=== PATIENT | female | born 1950 | race Caucasian/White ===

== ENCOUNTER 2018-05-11 09:04 | Day surgery (SDC) | payer OTHER ==
[~2018-05-11] VITALS: Ht 162.6 cm; Wt 91.8 kg
[~2018-05-11 09:04] MED LIST: ASPI325 PO; CELE200 PO; COLCRYS0.6 MG PO; DIALYVITE V5000 UNIT PO; FIBER GUMMIES1 EACH PO; GABA400 PO; OXYC5 PO; Omeprazole20 M1; PREDNISONE; PRILOSEC; Prinivil10 MG PO; QUININE; Stool Softener100 MG PO; TRAM50 PO; Zantac150 MG PO; [UNRECOGNIZED DRUG - OTHER]
[2018-05-11] MEDS ORDERED: TRAM50 (09:40)
== END 2018-05-11 10:59 | disposition home or self-care (01) ==
LOC: ORSCSDS 09:04
PROVIDERS: Internal Medicine Gastroenterology
PROC: 0DBL8ZX Excision of Transverse Colon, Via Natural or Artificial Opening Endoscopic, Diagnostic (ICD-10-PCS; principal; 2018-05-11 10:15)
DX: Z12.11 Encounter for screening for malignant neoplasm of colon (principal); D12.3 Benign neoplasm of transverse colon; K57.30 Diverticulosis of large intestine without perforation or abscess without bleeding; K64.8 Other hemorrhoids; I10 Essential (primary) hypertension; Z86.010 Personal history of colon polyps; Z80.0 Family history of malignant neoplasm of digestive organs; K21.9 Gastro-esophageal reflux disease without esophagitis; Z79.899 Other long term (current) drug therapy
CPT/HCPCS: 88305; J0330; J1980; J2405; J7120

== ENCOUNTER → 2019-07-12 | Outpatient (CLI) | payer OTHER ==
[~2019-07-12] MED LIST changes: +HYDROCODON-ACE1 EAC3 PO; +IBU600 MG PO; +TRAM50
[2019-07-12 08:29] LABS: Source, Urine Clean Catch
[2019-07-12 13:49] LABS: Bilirubin, Urine Neg (Neg); Blood, Urine 1+ (Neg); Glucose Qualitative, Urine Neg (Neg); Ketones, Urine Neg (Neg); Leukocyte Esterase, Urine Neg (Neg); Nitrite, Urine Neg (Neg); Protein, Urine Neg (Neg); Urobilinogen, Urine NORM (Normal)
[2019-07-12 14:02] LABS: Appearance, Urine Hazy (Clear); Color, Urine Yellow (P-Yellow)
[2019-07-12 14:04] LABS: Bacteria Rare /hpf; Red Blood Cells, Urine 0-2 /hpf (0-2); Squamous Epithelial Cells Mod /hpf (Few); White Blood Cells, Urine 0-2 /hpf (0-5)
== END | disposition home or self-care (01) ==
LOC: LAB SHORT 08:09 → LAB 08:09
PROVIDERS: Nurse Practitioner Family
DX: R35.0 Frequency of micturition (principal)
CPT/HCPCS: 81001

== ENCOUNTER 2019-07-19 10:52 | Emergency (ER) | payer OTHER ==
[~2019-07-19] VITALS: Ht 162.6 cm; Wt 93.0 kg
[~2019-07-19 10:52] MED LIST changes: -HYDROCODON-ACE1 EAC3 PO; -IBU600 MG PO
[2019-07-19 12:19] LABS: Source, Urine Clean Catch
[2019-07-19 12:36] LABS: Bilirubin, Urine Neg (Neg); Blood, Urine Neg (Neg); Glucose Qualitative, Urine Neg (Neg); Ketones, Urine Neg (Neg); Leukocyte Esterase, Urine Neg (Neg); Nitrite, Urine Neg (Neg); Protein, Urine Neg (Neg); Urobilinogen, Urine NORM (Normal)
[2019-07-19 12:40] LABS: Appearance, Urine Clear (Clear); Color, Urine Pale Yellow (P-Yellow)
[2019-07-19] MEDS ORDERED: IBU600 MG PO (13:33)
[2019-07-19] MEDS ORDERED: HYDROCODON-ACE1 EAC3 PO (13:33)
== END 2019-07-19 14:07 | disposition home or self-care (01) ==
LOC: ER 10:52
PROVIDERS: Emergency Medicine
DX: K80.20 Calculus of gallbladder without cholecystitis without obstruction (principal); N83.8 Other noninflammatory disorders of ovary, fallopian tube and broad ligament; Z88.0 Allergy status to penicillin; Z88.8 Allergy status to other drugs, medicaments and biological substances; Z88.5 Allergy status to narcotic agent; Z91.048 Other nonmedicinal substance allergy status; Z79.899 Other long term (current) drug therapy; Z79.891 Long term (current) use of opiate analgesic; K44.9 Diaphragmatic hernia without obstruction or gangrene
CPT/HCPCS: 74022; 74177; 80053; 81003; 83690; 85025; 99284-25; A9270-GY; Q9967

== ENCOUNTER 2019-09-26 08:44 | Day surgery (SDC) | payer OTHER ==
[~2019-09-26] VITALS: Ht 162.6 cm; Wt 87.0 kg
[~2019-09-26 08:44] MED LIST changes: +ALBU3IS INH; +ALBU90OI INH; +Alprazolam0.25 MG PO; +BUSP5 PO; +Baclofen10 MG PO; +CELE100 PO; +CLON.1 PO; +DOCU100 PO; +ELIQUIS5 MG PO; +ESCI20 PO; +ESTRADIOL PO; +FAMO20 PO; +HYDROCODON-ACE1 EAC3 PO; +IBU600 MG PO; +LOSA50 PO; +MELO7.5 PO; +METO25ER PO; +OMEPRAZOLE20 MG PO; +OXYB5 PO; +PROLIA60 MG/1 ML SC; +TRAZ100 PO; +VERA180ERB PO; +VITAMIN B122500 MCG PO; +Vitamin D2000 UNIT PO
--- NOTE | 2019-09-26 09:31 | NUR ---
PT ADMITTED TO [facility]. AGREES WITH PLANNED SURGERY. LUNG SOUNDS CLEAR.
--- NOTE | 2019-09-26 11:36 | NUR ---
INTO STEP VIA [facility]A. PT A&OX3. DENIES PAIN OR NAUSEA. 4X4 AND CLEAR OCCLUSIVE DRESSING INTACT TO RIGHT CHEST.
--- NOTE | 2019-09-26 12:11 | NUR ---
WRITTEN AND VERBAL D/C INSTUCTIONS GIVEN TO PT WITH STATED UNDERSTANDING.
== END 2019-09-26 12:28 | disposition home or self-care (01) ==
LOC: ORSCMMR 08:44
PROVIDERS: Surgery
PROC: B5131ZA Fluoroscopy of Right Jugular Veins using Low Osmolar Contrast, Guidance (ICD-10-PCS; principal; 2019-09-26 09:30)
PROC: 05HM33Z Insertion of Infusion Device into Right Internal Jugular Vein, Percutaneous Approach (ICD-10-PCS; principal; 2019-09-26 09:30)
DX: C56.1 Malignant neoplasm of right ovary (principal); I10 Essential (primary) hypertension; K21.9 Gastro-esophageal reflux disease without esophagitis; Z79.899 Other long term (current) drug therapy
CPT/HCPCS: 77001; A9270-GY; C1788; J0690; J1100; J1642; J1885; J2250; J2370; J2405; J2704; J2710; J3010; J7120

== ENCOUNTER 2020-04-01 00:14 | Day surgery (SDC) | payer OTHER | END 2020-04-01 11:30 | disposition home or self-care (01) | DX: C56.1 Malignant neoplasm of right ovary (principal); Z88.1 Allergy status to other antibiotic agents; Z88.5 Allergy status to narcotic agent; Z79.899 Other long term (current) drug therapy ==

== ENCOUNTER 2020-08-11 18:03 | Inpatient (IN) | payer OTHER ==
[~2020-08-11] VITALS: Ht 152.4 cm; Wt 91.3 kg
[2020-08-11 19:00] LABS: BASOPHILS ABSOLUTE AUTO 0.09 K/mm3 (0.00-0.23); BASOPHILS PERCENT AUTO 1 % (0-2); EOSINOPHILS PERCENT AUTO 1 % (0-6); Hematocrit 36.5 % (33.0-51.0); Hemoglobin 11.2 g/dL (11.5-16.0); IMMATURE GRAN ABSOLUTE AUTO 0.11 K/mm3 (0.00-0.10); IMMATURE GRAN PERCENT AUTO 1 % (0-1); LYMPHOCYTES ABSOLUTE AUTO 1.17 K/mm3 (0.84-5.20); LYMPHOCYTES PERCENT AUTO 8 % (21-46); MONOCYTES ABSOLUTE AUTO 1.42 K/mm3 (0.16-1.47); MONOCYTES PERCENT AUTO 10 % (4-13); Mean Corpuscular HGB 27.7 pg (26.0-34.0); Mean Corpuscular HGB Conc 30.7 g/dL (31.5-36.5); Mean Corpuscular Volume 90 fL (80-100); Mean Platelet Volume 9.9 fL (9.1-12.4); NEUTROPHILS ABSOLUTE AUTO 11.75 K/mm3 (1.96-9.15); NEUTROPHILS PERCENT AUTO 80 % (41-73); Platelet Count 229 K/mm3 (150-400); RDW Coefficient Variation 13.2 % (11.7-14.2); RDW Standard Deviation 43.7 fL (35.1-46.3); Red Blood Cell Count 4.04 M/mm3 (3.80-5.20); White Blood Cell Count 14.74 K/mm3 (4.00-11.30)
[2020-08-11 19:19] LABS: Albumin, Blood 3.1 g/dL (3.4-5.0); Albumin/Globulin Ratio 0.8 (0.8-1.8); Bilirubin, Total 0.5 mg/dL (0.1-1.0); Bun/Creatinine Ratio 25.7 (12.0-20.0); Calcium, Blood 11.5 mg/dL (8.5-10.1); Creatinine, Blood 1.44 mg/dL (0.40-1.00); Potassium, Blood 4.1 mmol/L (3.5-5.5); Total Protein, Blood 7.1 g/dL (6.4-8.2)
[2020-08-11] MEDS ORDERED: ONDA4 PO (19:54)
[2020-08-11] MEDS ORDERED: PROC5 PO (19:55)
[2020-08-11 21:35] LABS: Source, Urine Clean Catch
[2020-08-11 21:42] LABS: Bilirubin, Urine Neg (Neg); Blood, Urine 2+ (Neg); Glucose Qualitative, Urine Neg (Neg); Ketones, Urine Neg (Neg); Leukocyte Esterase, Urine Neg (Neg); Nitrite, Urine Neg (Neg); Protein, Urine 1+ (Neg); Specific Gravity, Urine 1.025 (1.003-1.022); Urobilinogen, Urine NORM (Normal)
[2020-08-11 21:43] LABS: Appearance, Urine Clear (Clear); Color, Urine Yellow (P-Yellow)
[2020-08-11 22:00] LABS: Bacteria Few /hpf; Mucus Light (0-Heavy); Red Blood Cells, Urine Not Seen /hpf (0-2); Squamous Epithelial Cells Mod /hpf (Few); White Blood Cells, Urine Rare /hpf (0-5)
[2020-08-12] MEDS ORDERED: GABA400 PO (02:29)
[2020-08-12 03:47] LABS: BASOPHILS ABSOLUTE AUTO 0.06 K/mm3 (0.00-0.23); BASOPHILS PERCENT AUTO 1 % (0-2); EOSINOPHILS ABSOLUTE AUTO 0.21 K/mm3 (0.00-0.68); EOSINOPHILS PERCENT AUTO 2 % (0-6); Hematocrit 31.2 % (33.0-51.0); Hemoglobin 9.5 g/dL (11.5-16.0); IMMATURE GRAN ABSOLUTE AUTO 0.07 K/mm3 (0.00-0.10); IMMATURE GRAN PERCENT AUTO 1 % (0-1); LYMPHOCYTES ABSOLUTE AUTO 1.42 K/mm3 (0.84-5.20); LYMPHOCYTES PERCENT AUTO 13 % (21-46); MONOCYTES ABSOLUTE AUTO 1.05 K/mm3 (0.16-1.47); MONOCYTES PERCENT AUTO 9 % (4-13); Mean Corpuscular HGB 27.5 pg (26.0-34.0); Mean Corpuscular HGB Conc 30.4 g/dL (31.5-36.5); Mean Corpuscular Volume 90 fL (80-100); NEUTROPHILS ABSOLUTE AUTO 8.58 K/mm3 (1.96-9.15); NEUTROPHILS PERCENT AUTO 75 % (41-73); Platelet Count 189 K/mm3 (150-400); RDW Coefficient Variation 13.2 % (11.7-14.2); RDW Standard Deviation 43.5 fL (35.1-46.3); Red Blood Cell Count 3.46 M/mm3 (3.80-5.20); White Blood Cell Count 11.39 K/mm3 (4.00-11.30)
[2020-08-12 04:09] LABS: Bun/Creatinine Ratio 25.4 (12.0-20.0); Calcium, Blood 10.1 mg/dL (8.5-10.1); Creatinine, Blood 1.3 mg/dL (0.40-1.00); Potassium, Blood 4.1 mmol/L (3.5-5.5)
--- NOTE | 2020-08-12 05:39 | NUR ---
SUMMARY PT COMPLAINS OF BLE PAIN UP TO HER HIPS AND GROIN AREA. PT STATES THAT SHE CAN NOT SLEEP AND IS HUNGRY. NO REPORTS OF NAUSEA THROUGHOUT THE NIGHT. SHE IS A SBA TO BEDSIDE COMMODE AND CAN REPOSITION INDEPENDENTLY IN BED, OCCASIONALLY ASKS FOR ASSISTANCE. SHE IS AWARE OF HER LIMITS AND ASKS FOR ASSISTANCE WHEN NEEDED. VSS, NO ACUTE CHANGES, CALL LIGHT IN REACH, BED IN LOW POSITION.
--- NOTE | 2020-08-12 07:30 | NUR ---
ASSUMED PATIENT CARE. PATIENT RESTING COMFORTABLY IN BED, CONVERSING WITH NURSING STAFF. NO SIGNS OF ACUTE DISTRESS, WCTM.
--- NOTE | 2020-08-12 09:38 | NUR ---
ASSUMED PATIENT CARE. PATIENT RESTING COMFORTABLY IN BED, NO SIGNS OF ACUTE DISTRESS, WCTM.
--- NOTE | 2020-08-12 19:32 | NUR ---
NO ACUTE EVENTS THIS SHIFT, HEPARIN THERAPY CONTINUED PER ORDERS. VSS, PATIENT DENIED CHEST PAIN/PRESSURE, SOB. PATIENT EDUCATED ON SIGNS OF PE AND TO CALL NURSING STAFF, PATIENT VERBALIZED UNDERSTANDING. DR. VIEIRA CONSULTED, PLAN IS FOR CLOT FILTER PLACEMENT TOMORROW. PATIENT ALERT AND ORIENTED, ON RA. NO SIGNS OF ACUTE DISTRESS.
[2020-08-13 02:10] LABS: BASOPHILS ABSOLUTE AUTO 0.06 K/mm3 (0.00-0.23); BASOPHILS PERCENT AUTO 1 % (0-2); EOSINOPHILS ABSOLUTE AUTO 0.23 K/mm3 (0.00-0.68); EOSINOPHILS PERCENT AUTO 2 % (0-6); Hematocrit 31.8 % (33.0-51.0); IMMATURE GRAN PERCENT AUTO 1 % (0-1); LYMPHOCYTES ABSOLUTE AUTO 1.66 K/mm3 (0.84-5.20); LYMPHOCYTES PERCENT AUTO 16 % (21-46); MONOCYTES ABSOLUTE AUTO 0.95 K/mm3 (0.16-1.47); MONOCYTES PERCENT AUTO 9 % (4-13); Mean Corpuscular HGB 27.9 pg (26.0-34.0); Mean Corpuscular HGB Conc 31.4 g/dL (31.5-36.5); Mean Corpuscular Volume 89 fL (80-100); Mean Platelet Volume 9.3 fL (9.1-12.4); NEUTROPHILS ABSOLUTE AUTO 7.39 K/mm3 (1.96-9.15); NEUTROPHILS PERCENT AUTO 71 % (41-73); Platelet Count 221 K/mm3 (150-400); RDW Coefficient Variation 13.1 % (11.7-14.2); RDW Standard Deviation 42.8 fL (35.1-46.3); Red Blood Cell Count 3.58 M/mm3 (3.80-5.20); White Blood Cell Count 10.39 K/mm3 (4.00-11.30)
[2020-08-13 02:25] LABS: Bun/Creatinine Ratio 18.5 (12.0-20.0); Calcium, Blood 10.3 mg/dL (8.5-10.1); Creatinine, Blood 1.08 mg/dL (0.40-1.00); Potassium, Blood 4.7 mmol/L (3.5-5.5)
--- NOTE | 2020-08-13 04:38 | NUR ---
SUMMARY PT IS SBA ASSIST TO BEDSIDE COMMODE. PT WOKE PERIODICALLY THROUGHOUT NIGHT DUE TO FEELING NAUSEATED, MEDICATED FOR NAUSEA, SEE eMAR. VSS, NO OTHER SIGNIFICANT CHANGES. CALL LIGHT IS IN REACH, BED IN LOW POSITION, WILL CONTINUE TO MONITOR.
--- NOTE | 2020-08-13 07:56 | NUR ---
ASSUMED PATIENT CARE. PATIENT SLEEPING COMFORTABLY IN BED, NO SIGNS OF ACUTE DISTRESS, WCTM.
--- NOTE | 2020-08-13 17:52 | NUR ---
REview of pt needs with physician. contacted doctor capri reina in [place] and requested last porgress notes and plan of care form office. Sent pt CT scan and notes and spoke with doctor jeronimo nurse with permission. Met with patient and her . Pt somewhat shocked after talking with doctor and reviewing scans. She had questions on prognosis and was still wanting to have great hope but also taking inventory of her life. She wanted to discuss advance cre planning. She was unsure about code status. Gently reviewed option of care that would allow treatment that she could adjust. Suggested we do advance directives to assign an alternate decision maker. At this time she wants her son states it would be to much for her . We discussed CPR and ventilator care. She questioned afectivness of CPR and we explored her belief systems and how [place] wanted to live her life. after discussion she is considering no CPR but will take some short tiem on a ventilator if needed. She states that if she was not neurologically intact [place] would not want chani life support. We discussed her will, POA and life needs. theraputic timw pt tearfull at end and theraputic touch and supportive prayer and facilitated her to get some anger and stress out. Will follow up with son.
--- NOTE | 2020-08-13 17:57 | NUR ---
PATIENT BEGAN TO COMPLAIN OF 10/10 PAIN IN THE AREA OF THE OUTER RIGHT KNEE AND R. LOWER CHEST. HEPARIN HAS BEEN CONTINUOUS THIS SHIFT, MANAGED PER PHARMACY. DR. MARTÍNEZ NOTIFIED, NO NEW ORDERS GIVEN. VSS EXCEPT SLIGHT INCREASE IN PATIENT'S RR. PATIENT STATUS COMMUNICATED TO HEART CENTER TEAM. PATIENT GIVEN IV FENTANYL FOR PAIN, TAKEN TO PLANNED TOP LIFTER PROCEDURE.
--- NOTE | 2020-08-13 18:37 | NUR ---
PATIENT WENT TO [facility] FOR IVC PLACEMENT. SEE PREVIOUS NOTE AT 1757 FOR INFO ON PATIENT STATUS IMMEDIATELY PRIOR TO [facility] PROCEDURE. THIS SHIFT PATIENT WORKED WITH OT, ABLE AMBULATE STANDBY ASSIST TO BEDSIDE COMMODE, WORKED WITH OT. PALLIATIVE CARE DISCUSSED ADVANCED CARE PLANNING AND CODE STATUS WITH PATIENT AND TODAY, RECEPTIVE CONVERSATION AND PALLIATIVE FOLLOWING. PATIENT ENDORSED THAT SHE WOULD LIKE TO DISCUSS PROGNOSIS AND PLANNING FOR CANCER TREATMENT, BUT IS ALSO WILLING TO DISCUSS CHANGE TO DNR CODE STATUS. PATIENT SPOUSE AND SON AT BEDSIDE THROUGHOUT SHIFT. PULMONARY ANGIOGRAM SHOWED NO SIGNS OF SADDLE EMBOLISM. PATIENT ALERT AND ORIENTED BACK IN ROOM, NO SIGNS OF ACUTE DISTRESS, WCTM.
--- NOTE | 2020-08-14 05:41 | NUR ---
PT RESTED SOME THROUGHOUT NIGHT AO ROOM AIR TELE NSR HEP GTT TITRATED TO 22U/KG/HR NAUSEA X3/EMESIS X1 VOIDING TO BSC 0 BM VSS CALL LIGHT WITHIN REACH, BED IN LOWEST POSITION. WILL CONTINUE TO MONITOR.
--- NOTE | 2020-08-14 07:19 | NUR ---
ASSUMED PATIENT CARE. PATIENT SLEEPING COMFORTABLY IN BED, NO SIGNS OF ACUTE DISTRESS, WCTM.
--- NOTE | 2020-08-14 17:31 | NUR ---
NO ACUTE EVENTS THIS SHIFT. PATIENT WENT TO TEACHER ADVISOR FOR THROMBECTOMY. UPON RETURN TO PCU, R PEDAL PULSE SIGNIFICANTLY IMPROVED AND STRONG. HEPARIN DRIP CONTINUED. PLAN IS FOR CONTINUED WORK WITH PT/OT POST CATH, PATIENT ABLE TO AMBULATE WELL WITH SBA TO BEDSIDE COMMODE AT THIS POINT. PATIENT HAS HAD INTERMITTENT NAUSEA TODAY, NO VOMITING THIS SHIFT. REGULAR DIET ORDERED BY DR. MARTÍNEZ, WILL SUPPORT NUTRITIONAL INTAKE THE PATIENT IS ABLE TO TOLERATE, MEDICATING WITH ANTIEMETICS PER EMAR. PATIENT DENIED CHEST PAIN/SOB THIS SHIFT.
--- NOTE | 2020-08-15 05:42 | NUR ---
PT RESTED THROUGH NIGHT AO - ANXIOUS RA TELE NSR 1 SM BM VOIDING TO BSC R POPLITEAL SITE/R JUGULAR SITE C/D/I - NO SIGNS OF BLEEDING PAIN X4 NAUSEA X1 VSS HEP GTT 24U/KG/HR @31.2ML/HR - LATEST PTT 80.5 CALL LIGHT WITHIN REACH, BED IN LOWEST POSITION. WILL CONTINUE TO MONITOR.
[2020-08-15 11:12] LABS: Mean Platelet Volume 9.8 fL (9.1-12.4); Platelet Count 315 K/mm3 (150-400)
--- NOTE | 2020-08-15 13:17 | NUR ---
Pt resting states she is having some increased pain in her back, states sleep has been difficult and she is anxious about a plan. review of her husbands needs and medical fraily he is starting to need a caregiver. We talked about their son moving in and helpin or seeing if can [facility]. It aston be time for them to leave their home. Reviw with hemodialysis patient care specialist. both pt and her get care at [facility] will reach out with pt husbands and pt permission for support for them both.
--- NOTE | 2020-08-15 17:11 | NUR ---
SHIFT SUMMARY PT ALERT AND ORIENTED. VS STABLE. O2 SATS HAVE REMAINED ABOVE 90% ON RA. BP STABLE. PT COMPLAINS OF PAIN IN HER BACK AND SHOULDERS THAT IS CHRONIC. PT REPOSITIONED NEEDED AND MEDICATED PER EMAR. PT AMBULATED IN THE BARBOUR AND UP TO BATHROOM THROUGHOUT SHIFT. HR NSR. PT BRIDGED FROM HEP GTT TO XARELTO THIS SHIFT. STATUS CHANGED TO MEDICAL THIS SHIFT. WILL CONTINUE TO MONITOR AND REPORT TO ONCOMING RN. CALL LIGHT IN REACH.
[2020-08-16 05:36] LABS: BASOPHILS ABSOLUTE AUTO 0.05 K/mm3 (0.00-0.23); BASOPHILS PERCENT AUTO 1 % (0-2); EOSINOPHILS ABSOLUTE AUTO 0.17 K/mm3 (0.00-0.68); EOSINOPHILS PERCENT AUTO 2 % (0-6); IMMATURE GRAN ABSOLUTE AUTO 0.14 K/mm3 (0.00-0.10); IMMATURE GRAN PERCENT AUTO 2 % (0-1); LYMPHOCYTES PERCENT AUTO 10 % (21-46); MONOCYTES ABSOLUTE AUTO 1.01 K/mm3 (0.16-1.47); MONOCYTES PERCENT AUTO 12 % (4-13); Mean Corpuscular HGB 27.4 pg (26.0-34.0); Mean Corpuscular Volume 92 fL (80-100); Mean Platelet Volume 9.3 fL (9.1-12.4); NEUTROPHILS ABSOLUTE AUTO 6.45 K/mm3 (1.96-9.15); NEUTROPHILS PERCENT AUTO 74 % (41-73); Platelet Count 290 K/mm3 (150-400); RDW Coefficient Variation 13.3 % (11.7-14.2); RDW Standard Deviation 45.1 fL (35.1-46.3); Red Blood Cell Count 3.28 M/mm3 (3.80-5.20); White Blood Cell Count 8.72 K/mm3 (4.00-11.30)
[2020-08-16 05:52] LABS: Albumin, Blood 2.3 g/dL (3.4-5.0); Anion Gap 5 mmol/L (6-16); Blood Urea Nitrogen 37 mg/dL (8-24); Bun/Creatinine Ratio 24.2 (12.0-20.0); CO2, Blood 24 mmol/L (21-32); Calcium, Blood 10.6 mg/dL (8.5-10.1); Chloride, Blood 102 mmol/L (98-108); Creatinine, Blood 1.53 mg/dL (0.40-1.00); Glomerular Filtration Rate 36 (60-); Glucose, Blood 104 mg/dL (70-99); Magnesium, Blood 1.9 mg/dL (1.6-2.4); Phosphorus, Blood 3.2 mg/dL (2.5-4.9); Potassium, Blood 4.3 mmol/L (3.5-5.5); Sodium, Blood 131 mmol/L (136-145)
--- NOTE | 2020-08-16 07:50 | NUR ---
SHIFT SUMMARY PATIENT PLEASENT AND COOPERATIVE THROUGHOUT THE NIGHT. PATIENT APPAERED TO NAP ON AND OFF LAST NIGHT. PATIENT MEDICATED FOR PAIN PER EMAR. PATIENT DID EXPERIENCE SOME NAUSEA AND ONE EPISODE OF VOMITING LAST NIGHT. PATIENT REPORTS SHE THINK'S, "IT WAS THE ZUCCHINI I ATE LAST NIGHT." AFTER MEDICATION PROVIDED FOR NAUSEA, PATIENT ABLE TO FALL BACK TO SLEEP. VITAL SIGNS CHARTED. REPORT GIVEN TO ONCOMING RN.
--- NOTE | 2020-08-16 19:31 | NUR ---
SHIFT SUMMARY: NO ACUTE EVENTS THIS SHIFT. NO EVENTS ON TELEMTRY. C/O PAIN IN R HIP, NECK, R SHOULDER, AND BACK; MEDICATED PER EMAR WITH ADEQUATE RELIEF. DRESSINGS ON R POPLITEAL AND R CHEST ARE CD&I, NO BLEEDING NOTED. POOR APPETITE, MEDICATED FOR N/V X 1. AMBULATING TO BR WITH FWW AND SBA, IS DOING PHYSICAL THERAPY EXERCISES SHE IS ABLE. C/O POOR SLEEP LAST NIGHT, NAPPED APRT OF THE DAY.
--- NOTE | 2020-08-17 03:38 | NUR ---
SHIFT SUMMARY PATIENT HAD NO ACUTE CHANGES OBSERVED. AXOX 3 AND ONE ASSIST W/FWW TO BR. REPORTED R HIP, NECK AND R SHOULDER PAIN. IV FENTANYL 25 MCG GIVEN PER EMAR. REPORTED NAUSEOUS FOUR HRS AFTER MEDICATION ADMINISTRATION AND IV ZOFRAN GIVEN AND RESOLVED. PATIENT REPORTS HX OF N/V AFTER EVENING MEDS. VSS/AFEBRILE. PIV REMAINS INTACT. NS INFUSING AT 100 mL/HR. DIRECTOR OF ROTC REPORTS ST 105. CALL LIGHT IN REACH. BED IN LOWEST POSITION. WILL CONTINUE TO MONITOR UNTIL DAY SHIFT NURSE ASSUMES CARE.
[2020-08-17 05:14] LABS: BASOPHILS ABSOLUTE AUTO 0.04 K/mm3 (0.00-0.23); BASOPHILS PERCENT AUTO 0 % (0-2); EOSINOPHILS ABSOLUTE AUTO 0.09 K/mm3 (0.00-0.68); EOSINOPHILS PERCENT AUTO 1 % (0-6); Hemoglobin 8.4 g/dL (11.5-16.0); IMMATURE GRAN ABSOLUTE AUTO 0.15 K/mm3 (0.00-0.10); IMMATURE GRAN PERCENT AUTO 2 % (0-1); LYMPHOCYTES ABSOLUTE AUTO 0.95 K/mm3 (0.84-5.20); LYMPHOCYTES PERCENT AUTO 11 % (21-46); MONOCYTES ABSOLUTE AUTO 0.98 K/mm3 (0.16-1.47); MONOCYTES PERCENT AUTO 11 % (4-13); Mean Corpuscular HGB 28.1 pg (26.0-34.0); Mean Corpuscular HGB Conc 31.1 g/dL (31.5-36.5); Mean Corpuscular Volume 90 fL (80-100); Mean Platelet Volume 9.6 fL (9.1-12.4); NEUTROPHILS ABSOLUTE AUTO 6.81 K/mm3 (1.96-9.15); NEUTROPHILS PERCENT AUTO 76 % (41-73); Platelet Count 287 K/mm3 (150-400); RDW Coefficient Variation 13.5 % (11.7-14.2); RDW Standard Deviation 44.3 fL (35.1-46.3); Red Blood Cell Count 2.99 M/mm3 (3.80-5.20); White Blood Cell Count 9.02 K/mm3 (4.00-11.30)
[2020-08-17 05:37] LABS: Albumin, Blood 2.3 g/dL (3.4-5.0); Anion Gap 5 mmol/L (6-16); Blood Urea Nitrogen 28 mg/dL (8-24); Bun/Creatinine Ratio 25.7 (12.0-20.0); CO2, Blood 25 mmol/L (21-32); Calcium, Blood 10.2 mg/dL (8.5-10.1); Chloride, Blood 106 mmol/L (98-108); Creatinine, Blood 1.09 mg/dL (0.40-1.00); Glomerular Filtration Rate 53 (60-); Glucose, Blood 98 mg/dL (70-99); Magnesium, Blood 1.8 mg/dL (1.6-2.4); Phosphorus, Blood 2.5 mg/dL (2.5-4.9); Potassium, Blood 4.8 mmol/L (3.5-5.5); Sodium, Blood 136 mmol/L (136-145)
[2020-08-17] MEDS ORDERED: ACET325 PO (10:08)
[2020-08-17] MEDS ORDERED: XARELTO20 MG PO (10:09)
[2020-08-17] MEDS ORDERED: PROM25 PO (10:09)
--- NOTE | 2020-08-17 13:42 | NUR ---
PATIENT DISCHARGED TO HOME IN THE CARE OF HER NEIGHBOR. WAS GIVEN MARNIE PAPERWORK IN ORDER TO PICK 2 DOSES OF XARELTO HER PHARMACY IS CLOSED TODAY. IV SALINE LOCK REMOVED WITHOUT INCIDENT. PATIENT HAS ALL BELONGINGS. TAKEN DOWNSTAIRS VIA W/C AT 1335.
== END 2020-08-17 13:27 | disposition home health service (06) | DRG 270 ==
LOC: ER 18:03 → PCU 23:50 → MEDS 08-15 17:51
PROVIDERS: Internal Medicine; Internal Medicine Gastroenterology; Pharmacist; Physician Assistant; ADMIT Family Medicine
PROC: 06H03DZ Insertion of Intraluminal Device into Inferior Vena Cava, Percutaneous Approach (ICD-10-PCS; principal; 2020-08-13)
PROC: 04CK3ZZ Extirpation of Matter from Right Femoral Artery, Percutaneous Approach (ICD-10-PCS; 2020-08-14)
PROC: 047K3ZZ Dilation of Right Femoral Artery, Percutaneous Approach (ICD-10-PCS; 2020-08-14)
PROC: B5191ZZ Fluoroscopy of Inferior Vena Cava using Low Osmolar Contrast (ICD-10-PCS; 2020-08-14)
PROC: B51F1ZZ Fluoroscopy of Right Pelvic (Iliac) Veins using Low Osmolar Contrast (ICD-10-PCS; 2020-08-14)
PROC: B51B1ZZ Fluoroscopy of Right Lower Extremity Veins using Low Osmolar Contrast (ICD-10-PCS; 2020-08-14)
DX: I82.413 Acute embolism and thrombosis of femoral vein, bilateral (principal); I26.99 Other pulmonary embolism without acute cor pulmonale; C56.9 Malignant neoplasm of unspecified ovary; C78.7 Secondary malignant neoplasm of liver and intrahepatic bile duct; N17.9 Acute kidney failure, unspecified; R65.10 Systemic inflammatory response syndrome (SIRS) of non-infectious origin without acute organ dysfunction; I82.433 Acute embolism and thrombosis of popliteal vein, bilateral; I82.443 Acute embolism and thrombosis of tibial vein, bilateral; I82.453 Acute embolism and thrombosis of peroneal vein, bilateral; E83.52 Hypercalcemia; K21.9 Gastro-esophageal reflux disease without esophagitis; E86.0 Dehydration
CPT/HCPCS: 36005; 36010; 36415; 37187; 37191; 37248; 71260; 74176; 74177; 75820; 76937; 80048; 80053; 80069; 81001; 83605; 83690; 83735; 85025; 85049; 85730; 86304; 87040; 93005; 93010; 93970; 96361; 96374; 97110; 97116; 97161; 97165; 97530; 97535; 99152; 99153; 99285-25; A9270; C1725; C1757; C1769; C1880; C1887; C1894; C9113; J0780; J1644; J2250; J2405; J2550; J3010; J7030; J7040; Q9967

== ENCOUNTER → 2020-09-03 | Outpatient (CLI) | payer OTHER ==
[~2020-09-03] MED LIST changes: +ACET325 PO; +FENTANYL1 EA10 TOP; +FENTANYL1 EA14 TOP; +HYDR1TAB94 PO; +LORA1 PO; +MIRALAX17 GM PO; +MORP20L PO; +OLAN5 PO; +ONDA4 PO; +Ondansetron Odt8 MG MM; +PROC5 PO; +PROM25 PO; +TRANSDERM-SCOP1 EAC2 TOP; +XARELTO20 MG PO
[2020-09-03 16:54] LABS: BASOPHILS ABSOLUTE AUTO 0.04 K/mm3 (0.00-0.23); BASOPHILS PERCENT AUTO 1 % (0-2); EOSINOPHILS ABSOLUTE AUTO 0.08 K/mm3 (0.00-0.68); EOSINOPHILS PERCENT AUTO 1 % (0-6); Hematocrit 29.6 % (33.0-51.0); Hemoglobin 8.7 g/dL (11.5-16.0); IMMATURE GRAN ABSOLUTE AUTO 0.05 K/mm3 (0.00-0.10); IMMATURE GRAN PERCENT AUTO 1 % (0-1); LYMPHOCYTES ABSOLUTE AUTO 0.82 K/mm3 (0.84-5.20); LYMPHOCYTES PERCENT AUTO 10 % (21-46); MONOCYTES ABSOLUTE AUTO 0.81 K/mm3 (0.16-1.47); MONOCYTES PERCENT AUTO 10 % (4-13); Mean Corpuscular HGB 26.4 pg (26.0-34.0); Mean Corpuscular HGB Conc 29.4 g/dL (31.5-36.5); Mean Corpuscular Volume 90 fL (80-100); Mean Platelet Volume 9.9 fL (9.1-12.4); NEUTROPHILS ABSOLUTE AUTO 6.48 K/mm3 (1.96-9.15); NEUTROPHILS PERCENT AUTO 78 % (41-73); Platelet Count 332 K/mm3 (150-400); RDW Coefficient Variation 14.1 % (11.7-14.2); RDW Standard Deviation 46.6 fL (35.1-46.3); White Blood Cell Count 8.28 K/mm3 (4.00-11.30)
[2020-09-03 17:06] LABS: Albumin, Blood 2.6 g/dL (3.4-5.0); Albumin/Globulin Ratio 0.7 (0.8-1.8); Bilirubin, Total 0.3 mg/dL (0.1-1.0); Bun/Creatinine Ratio 18.5 (12.0-20.0); Calcium, Blood 12.1 mg/dL (8.5-10.1); Creatinine, Blood 1.51 mg/dL (0.40-1.00); Globulin, Blood 3.8 g/dL (2.2-4.0); Potassium, Blood 5.1 mmol/L (3.5-5.5); Total Protein, Blood 6.4 g/dL (6.4-8.2)
[2020-09-03 17:12] LABS: International Normalized Ratio 1.05; Prothrombin Time Results 11.2 Sec (9.7-11.5)
== END ==
LOC: LAB SHORT 14:56 → LAB 14:56
PROVIDERS: Registered Nurse Oncology
DX: C56.9 Malignant neoplasm of unspecified ovary (principal); C78.7 Secondary malignant neoplasm of liver and intrahepatic bile duct; R18.8 Other ascites; R11.2 Nausea with vomiting, unspecified
CPT/HCPCS: 80053; 85025; 85610; 85730

== ENCOUNTER 2020-09-05 09:19 | Observation (INO) | payer OTHER ==
[~2020-09-05] VITALS: Ht 160 cm; Wt 93.2 kg
[~2020-09-05 09:19] MED LIST changes: -FENTANYL1 EA10 TOP; -FENTANYL1 EA14 TOP; -HYDR1TAB94 PO; -LORA1 PO; -MIRALAX17 GM PO; -MORP20L PO; -OLAN5 PO; -Ondansetron Odt8 MG MM; -TRANSDERM-SCOP1 EAC2 TOP
[2020-09-05 10:17] LABS: BASOPHILS ABSOLUTE AUTO 0.03 K/mm3 (0.00-0.23); BASOPHILS PERCENT AUTO 0 % (0-2); EOSINOPHILS ABSOLUTE AUTO 0.01 K/mm3 (0.00-0.68); EOSINOPHILS PERCENT AUTO 0 % (0-6); Hematocrit 30.5 % (33.0-51.0); Hemoglobin 9.2 g/dL (11.5-16.0); IMMATURE GRAN ABSOLUTE AUTO 0.06 K/mm3 (0.00-0.10); IMMATURE GRAN PERCENT AUTO 1 % (0-1); LYMPHOCYTES PERCENT AUTO 9 % (21-46); MONOCYTES ABSOLUTE AUTO 0.94 K/mm3 (0.16-1.47); MONOCYTES PERCENT AUTO 10 % (4-13); Mean Corpuscular HGB 26.4 pg (26.0-34.0); Mean Corpuscular HGB Conc 30.2 g/dL (31.5-36.5); Mean Corpuscular Volume 88 fL (80-100); Mean Platelet Volume 9.3 fL (9.1-12.4); NEUTROPHILS ABSOLUTE AUTO 7.78 K/mm3 (1.96-9.15); NEUTROPHILS PERCENT AUTO 80 % (41-73); Platelet Count 299 K/mm3 (150-400); RDW Coefficient Variation 14.1 % (11.7-14.2); RDW Standard Deviation 45.1 fL (35.1-46.3); Red Blood Cell Count 3.48 M/mm3 (3.80-5.20); White Blood Cell Count 9.72 K/mm3 (4.00-11.30)
[2020-09-05 10:33] LABS: International Normalized Ratio 1.13
[2020-09-05 10:34] LABS: Albumin, Blood 2.6 g/dL (3.4-5.0); Albumin/Globulin Ratio 0.7 (0.8-1.8); Bilirubin, Total 0.4 mg/dL (0.1-1.0); Bun/Creatinine Ratio 20.2 (12.0-20.0); Calcium, Blood 11.5 mg/dL (8.5-10.1); Creatinine, Blood 1.24 mg/dL (0.40-1.00); Globulin, Blood 3.8 g/dL (2.2-4.0); Potassium, Blood 4.7 mmol/L (3.5-5.5); Total Protein, Blood 6.4 g/dL (6.4-8.2)
[2020-09-05] MEDS ORDERED: PROM25 PO (12:53)
[2020-09-05] MEDS ORDERED: PROC5 PO (12:53)
[2020-09-05] MEDS ORDERED: Ondansetron Odt8 MG MM (12:53)
[2020-09-05] MEDS ORDERED: FENTANYL1 EA10 TOP (17:55)
[2020-09-05] MEDS ORDERED: FENTANYL1 EA14 TOP (17:56)
--- NOTE | 2020-09-05 18:30 | NUR ---
PT ARRIVED TO ROOM 337 FROM ER VIA GURNEY. LIFTING/TRANSFER ASSISTANCE REQUIRED. ORIENTED TO ROOM AND CALL SYSTEM. BED IN LOWEST POSITION AND CALL REARDON IN REACH. PT REQUESTED TO USE RESTROOM, WAS ABLE TO STAND AND TRANSFER TO BSC WITH 1 ASSIST AND WALKER. WILL CONTINUE TO MONITOR
[2020-09-06 05:27] LABS: BASOPHILS ABSOLUTE AUTO 0.05 K/mm3 (0.00-0.23); BASOPHILS PERCENT AUTO 0 % (0-2); EOSINOPHILS ABSOLUTE AUTO 0.01 K/mm3 (0.00-0.68); EOSINOPHILS PERCENT AUTO 0 % (0-6); Hematocrit 28.9 % (33.0-51.0); Hemoglobin 8.8 g/dL (11.5-16.0); IMMATURE GRAN ABSOLUTE AUTO 0.06 K/mm3 (0.00-0.10); IMMATURE GRAN PERCENT AUTO 1 % (0-1); LYMPHOCYTES ABSOLUTE AUTO 1.26 K/mm3 (0.84-5.20); LYMPHOCYTES PERCENT AUTO 10 % (21-46); MONOCYTES PERCENT AUTO 10 % (4-13); Mean Corpuscular HGB 26.8 pg (26.0-34.0); Mean Corpuscular HGB Conc 30.4 g/dL (31.5-36.5); Mean Corpuscular Volume 88 fL (80-100); Mean Platelet Volume 9.3 fL (9.1-12.4); NEUTROPHILS ABSOLUTE AUTO 9.63 K/mm3 (1.96-9.15); NEUTROPHILS PERCENT AUTO 79 % (41-73); Platelet Count 279 K/mm3 (150-400); RDW Coefficient Variation 14.1 % (11.7-14.2); RDW Standard Deviation 45.5 fL (35.1-46.3); Red Blood Cell Count 3.28 M/mm3 (3.80-5.20); White Blood Cell Count 12.21 K/mm3 (4.00-11.30)
[2020-09-06 06:00] LABS: Albumin, Blood 2.5 g/dL (3.4-5.0); Albumin/Globulin Ratio 0.7 (0.8-1.8); Bilirubin, Total 0.4 mg/dL (0.1-1.0); Bun/Creatinine Ratio 23.4 (12.0-20.0); Calcium, Blood 11.7 mg/dL (8.5-10.1); Creatinine, Blood 1.24 mg/dL (0.40-1.00); Globulin, Blood 3.7 g/dL (2.2-4.0); Potassium, Blood 4.6 mmol/L (3.5-5.5); Total Protein, Blood 6.2 g/dL (6.4-8.2)
--- NOTE | 2020-09-06 06:47 | NUR ---
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 SHE IS A&O X 4, VERY ANXIOUS. SHE IS A 1PA TO THE BEDSIDE COMMODE, AND IS UP FREQUENTLY TO TRY TO URINATE. BELLY IS FIRM AND VERY DISTENDED, BUT PT DENIES PAIN. SHE DOES REPORT NAUSEA, BUT WAS ABLE TO TAKE PO MEDS. SHE ALSO REPORTED HEARTBURN THIS AM, AND WAS GIVEN HER FIRST DOSE OF PRILOSEC EARLY PER HER REQUEST. NO C/O SOB. VITAL SIGNS STABLE. PT IS ON A HEPARIN DRIP, WHICH WAS INCREASED TO 15 U/KG OR 21.3 ML/HR. NO OTHER ACUTE CHANGES IN PT CONDITION NOTED DURING THE NIGHT. WILL CONTINUE TO MONITOR AND TREAT PER EMAR UNTIL HAND OFF TO DAY SHIFT RN.
--- NOTE | 2020-09-06 16:16 | NUR ---
SHIFT SUMMARY NO ACUTE CHANGES T/O SHIFT, A&Ox4. ABD IS STILL FIRM AND DISTENDED, WELL SOME DISCOMFORT. PT IS NOW RECIEVING 0.5 MG OF DILAUDID Q1H PRN. PARACENTESIS IS STILL EXPECTED TO OCCUR TUESDAY. HEPARIN IS STILL RUNNING AND WAS ADJUSTED ONCE TODAY. PT COMPLAINS OF HER BUTTOM HURTING, WE RECOMMENDED WE HAVE THE PT REPOSITION OFTEN FROM SIDE TO SIDE AND ALLOW US TO FLOAT HER BOTTOM WITH PILLOWS. PT STATES IT IS NOT COMFORTABLE TO DO THOSE THINGS AND CAN'T STAY IN THAT POSITION LONG. NO REDNESS IS NOTED OR PRESSURE ULCERS DEVELOPING AT THIS TIME. WILL CONTINUE TO ENCOURAGE PT TO REPOSITION OFTEN. PT ALSO EXPERIENCED SOME NAUSEA AND WAS TREATED PER EMAR AND PT REQUEST.
--- NOTE | 2020-09-07 04:27 | NUR ---
SHIFT SUMMARY ASSUMED CARE OF PT AT 1900. PT IS A/OX4. HEART SOUNDS REGULAR, LUNG SOUNDS CLEAR. ABD HARD AND DISTENDED. PT VOMITED MEDICATION THE FIRST TIME GIVEN, MEDICATION ZOFRAN GIVEN TO STOP NEASEA, PT THEN ATTEMPTED AGAIN TO TAKE NIGHTLY MEDS BUT COULD NOT TAKE LACTALOSE DUE TO THE FACT THAT SHE THINKS IT IS WHAT MADE HER VOMIT IN THE FIRST PLACE BECUASE OF HOW SWEET IT WAS. PT IS 1P SBA TO COMMODE. PT URINE IS CLEAR AND YELLOW. PT C/O NEASEA AND PAIN IN THE AM, MEDCATED PER EMAR AND WAS ABLE TO SLEEP THE REST OF THE MORNING. CALL LIGHT IN REACH, BED IN LOWEST POSTION.
[2020-09-07 06:07] LABS: BASOPHILS ABSOLUTE AUTO 0.03 K/mm3 (0.00-0.23); BASOPHILS PERCENT AUTO 0 % (0-2); EOSINOPHILS ABSOLUTE AUTO 0.02 K/mm3 (0.00-0.68); EOSINOPHILS PERCENT AUTO 0 % (0-6); Hematocrit 27.1 % (33.0-51.0); Hemoglobin 8.2 g/dL (11.5-16.0); IMMATURE GRAN ABSOLUTE AUTO 0.08 K/mm3 (0.00-0.10); IMMATURE GRAN PERCENT AUTO 1 % (0-1); LYMPHOCYTES ABSOLUTE AUTO 1.38 K/mm3 (0.84-5.20); LYMPHOCYTES PERCENT AUTO 13 % (21-46); MONOCYTES PERCENT AUTO 9 % (4-13); Mean Corpuscular HGB 26.7 pg (26.0-34.0); Mean Corpuscular HGB Conc 30.3 g/dL (31.5-36.5); Mean Corpuscular Volume 88 fL (80-100); Mean Platelet Volume 9.4 fL (9.1-12.4); NEUTROPHILS ABSOLUTE AUTO 8.24 K/mm3 (1.96-9.15); NEUTROPHILS PERCENT AUTO 77 % (41-73); Platelet Count 299 K/mm3 (150-400); RDW Coefficient Variation 14.3 % (11.7-14.2); RDW Standard Deviation 46.1 fL (35.1-46.3); Red Blood Cell Count 3.07 M/mm3 (3.80-5.20); White Blood Cell Count 10.75 K/mm3 (4.00-11.30)
[2020-09-07 06:24] LABS: Albumin, Blood 2.3 g/dL (3.4-5.0); Albumin/Globulin Ratio 0.7 (0.8-1.8); Bilirubin, Total 0.5 mg/dL (0.1-1.0); Bun/Creatinine Ratio 19.2 (12.0-20.0); Creatinine, Blood 1.82 mg/dL (0.40-1.00); Globulin, Blood 3.4 g/dL (2.2-4.0); Potassium, Blood 4.5 mmol/L (3.5-5.5); Total Protein, Blood 5.7 g/dL (6.4-8.2)
--- NOTE | 2020-09-07 17:43 | NUR ---
SHIFT SUMMARY NO ACUTE CHANGES T/O SHIFT, PT A&Ox4. STILL EXPERIENCING PAIN AND NAUSEA, PT WAS TREATED PER PT REQUEST AND EMAR. STILL NO BM SINCE 09/01/20, PT REFUSE LACTULOSE DUE TO IT UPSETTING HER STOMACH THE NIGHT BEFORE. FLEET OIL ENEMA WAS ATTEMPTED WELL WITH NO RESULT. DUSTY WAS INFORMED AND SHE STATED SHE WOULD PUT IN AN ORDER FOR A SUPPOSITORY. HEPARIN DRIP STILL INFUSING PER PHARMACY INSTRUCTION. PARACENTESIS SUPPOSE TO OCCUR TOMORROW. PT CURRENTLY SITTING UP IN CHAIR EATING DINNER, SON IN ROOM, CALL LIGHT WITHIN REACH.
--- NOTE | 2020-09-08 04:21 | NUR ---
SHIFT SUMMARY ASSUMED CARE OF PT AT 1900. PT IS A/OX4, DENIES N.T IN EXTREMITES. HEART SOUNDS REGULAR, LUNG SOUNDS DIMINISHED. ABD DISTENDED AND FIRM, PT EAGER FOR PROCEDURE THIS AM. PT WAS GIVEN BOWEL CARE BUT STILL WITHOUT SUCCESS. PT HAS FREQUENT URINATION, URINE CLEAR AND YELLOW. PT C/O NEASE, MEDICATED PER EMAR. PT WAS ABLE TO SLEEP THIS PM. NO ACUTE EVENTS DURING THE NIGHT. CALL LIGHT IN REACH, BED IN LOWEST POSTION.
[2020-09-08 05:12] LABS: BASOPHILS ABSOLUTE AUTO 0.05 K/mm3 (0.00-0.23); BASOPHILS PERCENT AUTO 1 % (0-2); EOSINOPHILS ABSOLUTE AUTO 0.04 K/mm3 (0.00-0.68); EOSINOPHILS PERCENT AUTO 0 % (0-6); Hematocrit 26.5 % (33.0-51.0); IMMATURE GRAN ABSOLUTE AUTO 0.13 K/mm3 (0.00-0.10); IMMATURE GRAN PERCENT AUTO 1 % (0-1); LYMPHOCYTES ABSOLUTE AUTO 1.26 K/mm3 (0.84-5.20); LYMPHOCYTES PERCENT AUTO 13 % (21-46); MONOCYTES ABSOLUTE AUTO 1.03 K/mm3 (0.16-1.47); MONOCYTES PERCENT AUTO 11 % (4-13); Mean Corpuscular HGB 26.6 pg (26.0-34.0); Mean Corpuscular HGB Conc 30.2 g/dL (31.5-36.5); Mean Corpuscular Volume 88 fL (80-100); Mean Platelet Volume 9.7 fL (9.1-12.4); NEUTROPHILS ABSOLUTE AUTO 7.12 K/mm3 (1.96-9.15); NEUTROPHILS PERCENT AUTO 74 % (41-73); Platelet Count 307 K/mm3 (150-400); RDW Coefficient Variation 14.4 % (11.7-14.2); RDW Standard Deviation 46.2 fL (35.1-46.3); Red Blood Cell Count 3.01 M/mm3 (3.80-5.20); White Blood Cell Count 9.63 K/mm3 (4.00-11.30)
[2020-09-08 05:41] LABS: Albumin, Blood 2.1 g/dL (3.4-5.0); Albumin/Globulin Ratio 0.6 (0.8-1.8); Bilirubin, Total 0.3 mg/dL (0.1-1.0); Bun/Creatinine Ratio 17.3 (12.0-20.0); Calcium, Blood 11.5 mg/dL (8.5-10.1); Creatinine, Blood 2.6 mg/dL (0.40-1.00); Globulin, Blood 3.4 g/dL (2.2-4.0); Potassium, Blood 4.6 mmol/L (3.5-5.5); Total Protein, Blood 5.5 g/dL (6.4-8.2)
--- NOTE | 2020-09-08 14:11 | NUR ---
DR SEAY REQUESTED HEPARIN DRIP STOPPED AT 1000.
--- NOTE | 2020-09-08 16:59 | NUR ---
PT AOX4 AND COOPERATIVE OF CARE. PT STAYS IN HER BED AND CAN AMBULATE A ONE PERSON ASSIST,BUT DOES NOT WANT TO GO FAR. PT HAD HER PERACENTESIS COMPLETED AND TOLERATED WELL. PT IS SITTING IN HER BED RESTING AT THIS TIME WITH CALL LIGHT WITHIN REACH. NO DISTRESS NOTED AND PT STATES SHE FEELS MUCH MORE COMFORTABLE. WILL CONTINUE TO MONITOR.
--- NOTE | 2020-09-09 04:12 | NUR ---
CLASS 1 OWNER OPERATOR SUMMARY A/0X3. UP TO BSC WITH FWW. APPEARED TO SLEEP T/O NIGHT. DENIES PAIN, BREATHING IS UNLABORED. VSS. NO ACUTE CHANGES AT THIS TIME. BED IN LOWEST POSITION WITH CALL LIGHT IN REACH. WILL CONTINUE TO MONITOR AND REPORT TO ONCOMING RN.
--- NOTE | 2020-09-09 14:52 | NUR ---
Initial Visit: Palliative consult for end stage disease related to pt's cancer diagnosis. Pt is alert, oriented, reclining in bed. She reports 7/10 pain and is requesting more pain medication. Her last dose was at 1200; the begining time of my visit with her is 1400. She has IV dilaudid 0.5mg q 1 hour PRN. She states the pain is in her belly: She also states that she is experiencing some nausea/upset stomach issues. Pt reports anxiety and stress. Reports that her suffered an PR a couple weeks ago and he is now at [facility]. She will have nobody at home to assist her with her own illness. She is not short of breath at this time. She is speaking in full sentences without difficulty, although her belly is still severely distended. She reports she had 4L taken out during recent paracentesis. She tolerated this procedure well. Her appetite is improved, but her fear is that her belly fluid will re-collect and her appetite will again diminish. She has not had a good bowel movement. She reports suppository was the most effective and she does not understand why she has not had another one to help relieve this symptom. Logged into [facility] and reviewed her ordered medications with her. Suppository was ordered as a 1X dose on Tuesday. It was given to her. She is requesting suppository every day if she needs it. She has used Miralax at home and here in the hospital. This is ordered BID, PRN and she would like a dose at this time. Reviewed PRN medications and instructed to request these if needed for the nurse to review and give if appropriate. She has increased weakness and has noticed more issues with mobility. She is asking for help with repositioning when the nurse and WAREHOUSE SELECTOR are able to come into the room. She has new right shoulder pain and discomfort. She cannot raise her right hand above her head due to this discomfort and weakness. She does have an order to work with physical therapy. Pt states that she is continuing cancer treatments. She is asking where her "chemo pill" is: She reports she was supposed to begin an oral therapy today - this is not currently on her eMAR. She cannot remember what medication it is, just that it would be a "new treatment" for her to begin. She reports her last chemo treatments made her extremely ill with side effects. She is aware that her treatment will not cure her. She states, "but maybe it will buy me more time and make me feel better for a while. Call placed to Dr. Coon for changes to suppository orders. Notified of pt's expectation to have her chemo treatment started today. He will place a call to the pt's oncologist, Dr. Colin. Call to pt's nurse, Irlanda. Pt would like more pain medication, a dose of Miralax, and a suppository to be given this evening. Recommend surgical consult for placement of PleurX drain. Pt is experiencing increased fluid collection in her abd. Anticipate more frequent draining as pt becomes sicker - this would assist with ascites burden. business account managerquality assurance project manager placed for discharge issues. Recommend home health follow for medication management and managment of PleurX drain if indicated by surgery. Past palliative notes document discussion of advanced care planning and POLST education. Pt fatigued and was not able to continue discussion past palliative symptom assessment. Plan to follow up with pt in the future to revisit these discussions.
--- NOTE | 2020-09-09 17:52 | NUR ---
PLEASE REFER TO STUDENT NOTE FOR SHIFT SUMMARY.
--- NOTE | 2020-09-09 18:02 | NUR ---
PT IS A&O X3 WITH NO ACUTE CHANGES THIS SHIFT.PT HAS BEEN TREATED FOR PAIN PER EMAR. PT REQUESTED MIRALAX AND SUPPOSITORY PER PALLIATIVE CARE BUT DECLINED THEM BOTH WHEN OFFERED. PT REPORTED IT WAS TOO CLOSE TO DINNER. INFORMATION WILL BE FORWARDED TO NOC SHIFT RN. PT USES CALL LIGHT APPROPRIATELY. PT WAS TREATED PER EMAR. CALL LIGHT IS WITHIN REACH AND BED IS IN THE LOWEST POSITION. PT IS PLEASANT TO WORK WITH.
--- NOTE | 2020-09-10 04:10 | NUR ---
SHIFT SUMMARY PATIENT HAD NO ACUTE CHANGES OBSERVED. AXOX 3 AND ONE ASSIST WITH FWW TO BSC. PIVS REMAIN INTACT. DENIES PAIN AND SOB. NAUSEOUS X TWO AND IV ZOFRAN GIVEN PER EMAR. PATIENT ABLE TO SLEEP AFTER NAUSEA UNDER CONTROL. VSS/AFEBRILE. TAKES MEDICATION WHOLE WITH WATER. CALL LIGHT IN REACH. BED IN LOWEST POSITION. WILL CONTINUE TO MONITOR UNTIL DAY SHIFT NURSE ASSUMES CARE.
[2020-09-10 05:28] LABS: BASOPHILS ABSOLUTE AUTO 0.04 K/mm3 (0.00-0.23); BASOPHILS PERCENT AUTO 0 % (0-2); EOSINOPHILS ABSOLUTE AUTO 0.04 K/mm3 (0.00-0.68); EOSINOPHILS PERCENT AUTO 0 % (0-6); Hematocrit 24.8 % (33.0-51.0); Hemoglobin 7.6 g/dL (11.5-16.0); IMMATURE GRAN ABSOLUTE AUTO 0.13 K/mm3 (0.00-0.10); IMMATURE GRAN PERCENT AUTO 1 % (0-1); LYMPHOCYTES ABSOLUTE AUTO 1.23 K/mm3 (0.84-5.20); LYMPHOCYTES PERCENT AUTO 13 % (21-46); MONOCYTES ABSOLUTE AUTO 0.99 K/mm3 (0.16-1.47); MONOCYTES PERCENT AUTO 10 % (4-13); Mean Corpuscular HGB 26.5 pg (26.0-34.0); Mean Corpuscular HGB Conc 30.6 g/dL (31.5-36.5); Mean Corpuscular Volume 86 fL (80-100); Mean Platelet Volume 9.6 fL (9.1-12.4); NEUTROPHILS ABSOLUTE AUTO 7.32 K/mm3 (1.96-9.15); NEUTROPHILS PERCENT AUTO 75 % (41-73); Platelet Count 244 K/mm3 (150-400); RDW Coefficient Variation 14.2 % (11.7-14.2); RDW Standard Deviation 45.1 fL (35.1-46.3); Red Blood Cell Count 2.87 M/mm3 (3.80-5.20); White Blood Cell Count 9.75 K/mm3 (4.00-11.30)
[2020-09-10 05:47] LABS: Albumin/Globulin Ratio 0.6 (0.8-1.8); Bilirubin, Total 0.3 mg/dL (0.1-1.0); Bun/Creatinine Ratio 22.5 (12.0-20.0); Calcium, Blood 10.9 mg/dL (8.5-10.1); Creatinine, Blood 1.91 mg/dL (0.40-1.00); Globulin, Blood 3.2 g/dL (2.2-4.0); Potassium, Blood 4.6 mmol/L (3.5-5.5); Total Protein, Blood 5.2 g/dL (6.4-8.2)
--- NOTE | 2020-09-10 07:56 | NUR ---
GIVEN WARMED PRUNE JUICE WITH APPLE JUICE AND MELTED PAT OF BUTTER. REFUSED AFTER FIRST SIP
--- NOTE | 2020-09-10 18:21 | NUR ---
visit with pt she has been resting and nw pain is starting to flare up. She remembers out last conversation and so today was supportive. Her son is in [place] bringing his brother to airport. She is unsure when her will return home. She is hoping her son can care for them. Will reach out to son. Will see what abel olivas advises and review with pt. My be best to start hospice at home with jose back in home and son there with support of hospice. She does not like being away from him and fears not seeing him again. HOpe is maximize her quality of life and support her wishes as long as possible.
--- NOTE | 2020-09-10 18:53 | NUR ---
SHIFT SUMMARY- ASSUMED CARE OF PT LATER IN THE SHIFT (ABOUT 1400) PT HAD NO C/O PAIN UNTIL THE TIME OF PALLIATIVE CARE VISIT, MEDICATED FOR PAIN AT THAT TIME. SPOKE TO PALLIATIVE CARE RN ABOUT THE PT CASE, PT MAY BE HAVING A PLUREX DRAIN PLACED NO CONSULTS IN THE CHART FOR ONCOLOGY OR VASCULAR INTERVENTION YET VERBAL REPORT THAT THE DR WAS PLANNING TO CALL THEM. 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 ASCITES WAS DRAINED 2 DAYS AGO AND IS BACK. PT STILL A FULL CODE AT THIS TIME PALLIATIVE CARE HAS SPOKEN WITH HER ABOUT CODE STATUS. PT IS A 1PA TRANSFER TO [facility] AND CHAIR. ALERT AND ORIENTED. ATE WELL AT DINNER TIME. WILL PASS THIS ON IN REPORT TO NIGHT RN.
--- NOTE | 2020-09-11 04:44 | NUR ---
SHIFT SUMMARY: VSS. AFEB. AAOX4. FLAT AFFECT. COMMUNICATES NEEDS. MED FOR PAIN IN VARIOUS LOCATIONS X2 TONIGHT, EACH TIME W/GOOD EFFECT. ZOFRAN GIVEN FOR NAUSEA X1. T/F TO [facility] W/1 ASSIST. EXERTIONAL DYSPNEA. MAINTAINING O2 SATS WNL ON RA. ABD LARGE, ROUND, DISTENDED, FIRM. BT HYPOACTIVE. FLATUS +. NO ACUTE CONCERNS OVERNIGHT. WILL CONT TO MONITOR.
--- NOTE | 2020-09-11 17:42 | NUR ---
PATIENT IS ALERT AND ORIENTED AND COOPERATIVE WITH CARE. PATIENT HAD AN ASPIRA DRAIN PLACED THIS AFTERNOON BY DR. VIEIRA. THE ASPIRA DRAIN IS LOCATED ON THE PATIENT'S RLQ WITH ONE SUTURE AND ONE STERI STRIP, COVERED WITH GAUZE AND A CLEAR FILM. 1L OF FLUID WAS DRAINED SURING THE PROCEDURE. THE PATIENT C/O NAUSEA UPON RETURN TO MEDICAL FLOOR AND ASKED TO EAT DINNER. VITALS WNL UPON PATIENT'S RETURN TO HER ROOM. PATIENT GOT OUT OF BED WITH 1PA AND TRANSFERRED TO [facility] TO VOID. DR. SEAY NOTIFIED OF THE PATIENT'S PROCEDURE AND HE ORDERED XARELTO BE RESUMED. WILL CONTINUE TO MONITOR
[2020-09-12 05:18] LABS: BASOPHILS ABSOLUTE AUTO 0.05 K/mm3 (0.00-0.23); BASOPHILS PERCENT AUTO 1 % (0-2); EOSINOPHILS ABSOLUTE AUTO 0.05 K/mm3 (0.00-0.68); EOSINOPHILS PERCENT AUTO 1 % (0-6); Hematocrit 26.8 % (33.0-51.0); IMMATURE GRAN ABSOLUTE AUTO 0.16 K/mm3 (0.00-0.10); IMMATURE GRAN PERCENT AUTO 2 % (0-1); LYMPHOCYTES PERCENT AUTO 13 % (21-46); MONOCYTES ABSOLUTE AUTO 1.01 K/mm3 (0.16-1.47); MONOCYTES PERCENT AUTO 10 % (4-13); Mean Corpuscular HGB 26.5 pg (26.0-34.0); Mean Corpuscular HGB Conc 29.9 g/dL (31.5-36.5); Mean Corpuscular Volume 89 fL (80-100); Mean Platelet Volume 9.5 fL (9.1-12.4); NEUTROPHILS ABSOLUTE AUTO 7.72 K/mm3 (1.96-9.15); NEUTROPHILS PERCENT AUTO 75 % (41-73); Platelet Count 254 K/mm3 (150-400); RDW Coefficient Variation 14.2 % (11.7-14.2); RDW Standard Deviation 45.9 fL (35.1-46.3); Red Blood Cell Count 3.02 M/mm3 (3.80-5.20); White Blood Cell Count 10.29 K/mm3 (4.00-11.30)
--- NOTE | 2020-09-12 05:40 | NUR ---
SHIFT SUMMARY- PT. S/P PLEURX DRAIN PLACEMENT TO THE RLQ YESTERDAY. GAUZE DSG IN PLACE. PT. C/O PAIN TO THE RLQ AREA WELL HAS LEGS. MEDICATED PER EMAR WITH MINIMAL EFFECT. PT. ALSO HAS FENTANYL PATCH TO LT SHOULDER. A&O, 1 ASSIST W/WALKER TO BS, CALLS APPROPRIATELY, AND ABLE TO MAKE NEEDS KNOWN. NO ACUTE CHANGES TO CONDITION. SLEPT ON/OFF DURING THE NIGHT. NO APPARENT DISTRESS NOTED. PLAN FOR PT. TO D/C HOME WITH ASPIRE DRAIN STARTER KIT. PALLIATIVE CARE TO EDUCATE PT. ON USE. PT. RESTING QUIETLY IN BED. CALL LIGHT WITHIN REACH AND SIDE RAILS UPX2. WILL CONT TO MONITOR.
[2020-09-12 05:56] LABS: Albumin/Globulin Ratio 0.6 (0.8-1.8); Bilirubin, Total 0.3 mg/dL (0.1-1.0); Bun/Creatinine Ratio 22.9 (12.0-20.0); Calcium, Blood 10.8 mg/dL (8.5-10.1); Creatinine, Blood 1.44 mg/dL (0.40-1.00); Globulin, Blood 3.6 g/dL (2.2-4.0); Potassium, Blood 4.9 mmol/L (3.5-5.5); Total Protein, Blood 5.6 g/dL (6.4-8.2)
--- NOTE | 2020-09-12 12:00 | NUR ---
Clinical Visit: Pt is alert, oriented. She is sitting up in a chair, happily eating lunch. Food tastes very good to her and she reports a desire to eat. She is fairly comfortable at this moment. She states that her belly is feeling much better after PleurX drain placement and removal of some fluid. She is happy that she is going home today. Spoke with nursing. She will call when her son gets here. Plan is to have training on PleurX drain and kit. No concerns from patient. She believes her PleurX will be drained at Dr. Colin' office. Educated on home health nursing for follow up and supply for PleurX. She verbalizes understanding.
[2020-09-12] MEDS ORDERED: HYDR1TAB94 PO (14:29)
[2020-09-12] MEDS ORDERED: MIRALAX17 GM PO (14:30)
--- NOTE | 2020-09-12 14:30 | NUR ---
Clinical Visit: Pt is alert, oriented. She is resting in the recliner chair. Her son is at bedside. He is very attentive to her. Aspire drain teaching for abdominal fluid drainage. Allowed pt and son to watch demo video that comes with system. Questions answered, supplies discussed. Son has past history of being a prn occupational therapist and an EMT for some years. He is willing and able to do draining and dressing changes for her. Showed site and dressing. Instruction for calling home health if there are issues and notifying provider if there is signs and symptoms of infection such as redness, swelling, or change in color of fluid drainage. Log book discussed and shown to pt and son. Son verbalizes understanding of keeping a record of how much fluid was drained and how often it is drained. No other concerns at this time. Pt is discharging home today. She is excited to see her and to go home. She believes the Aspire drainage system will assist with her overall quality of life.
--- NOTE | 2020-09-12 16:51 | NUR ---
DISCHARGE NOTE PT IS A&O, HAS MEDIPORT IN PLACE THAT WAS NOT ACESSED THIS HOSPITAL STAY. PT HAD A PLUREX DRAIN PLACED 09/11/2020 THAT WILL BE MANAGED AT HOME WITH ASSISTANCE FROM PT'S SON AND HH, EDUCATION WAS PROVIDED BY DARRIAN FORTE WITH PALATIVE CARE. PT HAS HARD SCRIPT FOR [employer] AND PERSCRIPTIONS FAXED TO [facility]. PT HAS TO FENTANYL PAIN PATCHES IN PLACE ON HER UPPER SHOULDER. D/C INSTRUCTIONS REVIEWED WITH PT AND SON AND THEY HAD NO OTHER QUESTIONS. BELONGING SENT WITH PT. PT WAS TRANSPORTED BY PRIVATE CAR.
== END 2020-09-12 16:10 | disposition home or self-care (01) ==
LOC: ER 09:19 → MEDS 09:20
PROVIDERS: Internal Medicine; Physician Assistant; ADMIT Family Medicine
DX: C56.9 Malignant neoplasm of unspecified ovary (principal); R18.0 Malignant ascites; C78.6 Secondary malignant neoplasm of retroperitoneum and peritoneum; C78.7 Secondary malignant neoplasm of liver and intrahepatic bile duct; D63.0 Anemia in neoplastic disease; K59.03 Drug induced constipation; T40.2X5A Adverse effect of other opioids, initial encounter; N17.9 Acute kidney failure, unspecified; N18.9 Chronic kidney disease, unspecified; K21.9 Gastro-esophageal reflux disease without esophagitis; N32.81 Overactive bladder; M19.90 Unspecified osteoarthritis, unspecified site; M10.9 Gout, unspecified; M85.80 Other specified disorders of bone density and structure, unspecified site; I82.403 Acute embolism and thrombosis of unspecified deep veins of lower extremity, bilateral; M79.7 Fibromyalgia; Z23 Encounter for immunization; Z51.5 Encounter for palliative care; Z88.0 Allergy status to penicillin; Z88.1 Allergy status to other antibiotic agents; Z88.5 Allergy status to narcotic agent; Z91.09 Other allergy status, other than to drugs and biological substances; Z79.01 Long term (current) use of anticoagulants; Z79.1 Long term (current) use of non-steroidal anti-inflammatories (NSAID); Z79.899 Other long term (current) drug therapy; Z90.710 Acquired absence of both cervix and uterus; Z90.49 Acquired absence of other specified parts of digestive tract
CPT/HCPCS: 36415; 49083; 49418; 80053; 83690; 85025; 85610; 85730; 87070; 87205; 88108; 88305; 88341; 88342; 96374; 96375; 97110; 97116; 97161; 97165; 97530; 97530-CO; 97535; 97535-CO; 99152; 99153; 99284-25; A9270-GY; C1729; C1894; J0780; J1170; J1644; J1940; J2250; J2405; J3010; J7040

== ENCOUNTER 2020-09-14 10:02 | Observation (INO) | payer OTHER ==
[~2020-09-14] VITALS: Ht 160 cm; Wt 93.1 kg
[~2020-09-14 10:02] MED LIST changes: +FENTANYL1 EA10 TOP; +FENTANYL1 EA14 TOP; +HYDR1TAB94 PO; +MIRALAX17 GM PO; +Ondansetron Odt8 MG MM
[2020-09-14 10:45] LABS: BASOPHILS ABSOLUTE AUTO 0.04 K/mm3 (0.00-0.23); BASOPHILS PERCENT AUTO 0 % (0-2); EOSINOPHILS ABSOLUTE AUTO 0.01 K/mm3 (0.00-0.68); EOSINOPHILS PERCENT AUTO 0 % (0-6); Hematocrit 30.4 % (33.0-51.0); Hemoglobin 9.2 g/dL (11.5-16.0); IMMATURE GRAN PERCENT AUTO 2 % (0-1); LYMPHOCYTES ABSOLUTE AUTO 1.12 K/mm3 (0.84-5.20); LYMPHOCYTES PERCENT AUTO 8 % (21-46); MONOCYTES ABSOLUTE AUTO 1.24 K/mm3 (0.16-1.47); MONOCYTES PERCENT AUTO 9 % (4-13); Mean Corpuscular HGB Conc 30.3 g/dL (31.5-36.5); Mean Corpuscular Volume 86 fL (80-100); Mean Platelet Volume 9.3 fL (9.1-12.4); NEUTROPHILS ABSOLUTE AUTO 10.76 K/mm3 (1.96-9.15); NEUTROPHILS PERCENT AUTO 80 % (41-73); Platelet Count 322 K/mm3 (150-400); RDW Coefficient Variation 14.2 % (11.7-14.2); Red Blood Cell Count 3.54 M/mm3 (3.80-5.20); White Blood Cell Count 13.37 K/mm3 (4.00-11.30)
[2020-09-14 11:03] LABS: Albumin, Blood 2.3 g/dL (3.4-5.0); Albumin/Globulin Ratio 0.6 (0.8-1.8); Bilirubin, Total 0.6 mg/dL (0.1-1.0); Bun/Creatinine Ratio 16.5 (12.0-20.0); Calcium, Blood 11.5 mg/dL (8.5-10.1); Creatinine, Blood 1.33 mg/dL (0.40-1.00); Globulin, Blood 3.8 g/dL (2.2-4.0); Potassium, Blood 4.6 mmol/L (3.5-5.5); Total Protein, Blood 6.1 g/dL (6.4-8.2)
--- NOTE | 2020-09-14 17:05 | NUR ---
Comfort Care order placed by Dr Coon. Spoke with Pt's ED RN and discussed case. Plan for Pt to admit on comfort care. Pt resting on gurney upon arrival. Family not currently at bedside. Engaged in therapeutic conversation regarding decision for comfort care. Educated on comfort care philosophy with V/U made by Pt. Pt anxious to move to her room. Pt agreeable for Palliative Care to F/U once admitted to the floor. Spoke with Dr Coon and discussed case. Hospice referral has been placed. Palliative Care will F/U for symptom management and education for family regarding hospice philosophy.
--- NOTE | 2020-09-15 07:24 | NUR ---
ASE CERTIFIED TECHNICIAN SUMMARY PT ER ADMIT TO UNIT AT 2044. PT A/O X4 WITH FORGETFULNESS. PT STATED ABD PAIN WAS TOLERABLE AND NOT TOO PAINFUL UPON ADMIT TO UNIT. BELLY DISTENDED AND FIRM. PT ARRIVED WITH PLUREX DRAIN TO RIGHT LOWER ABD. PT'S SON AT BEDSIDE TONIGHT AND QUESTIONED ABOUT DRAINING PLUREX. WHEN THIS WAS QUESTIONED, PT WAS APPEARED TO BE RESTING COMFORTABLY IN BED. AROUND 0130 PT'S SON WAS REQUESTED TO DRAIN FLUID OUT OF PLUERX. PT'S SON STATED PLUERX TUBE HAS NOT BEEN DRAINED SINCE IT HAD BEEN PLACED (2 DAYS) OTHER THAN WHEN ER DRAINED 450ML OUT OF PLUREX. PT RATED ABD PAIN 6/10. ROXANOL GIVEN FOR PAIN. HOSPITALIST DR. TURCIOS NOTIFIED TO GET AN ORDER TO DRAIN PLUREX. CASH GRAIN FARMER KALPESH Telles DRAINED 1,000ML OUT OF THIS OVERNIGHT. WITH THIS AND ROXANOL COMBINED, PT RATED PAIN 3/10. NEW DRESSING PLACED TO PLUREX DRAIN SITE. NO REDNESS, OR SWELLING AT SITE. PT MEDICATED FOR N/V OVERNIGHT. ONE EPISODE OF EMESIS TONIGHT. WHEN RN ASKED PT IF SHE FELT BETTER COMPARED TO WHEN SHE WAS ADMITTED, PT STATED SHE DOESN'T FEEL ANY DIFFERENT. COMFORT CARE MEASURES GIVEN. PT IS ABLE TO REPOSITION SELF. UP TO BSC WITH 1 ASSIST. CONTIENT TO BOWEL AND BLADDER. REPORT GIVEN TO AM NURSE. BED ALARM ON, CALL LIGHT WITHIN REACH, REPORT GIVEN TO ONCOMING RN.
--- NOTE | 2020-09-15 08:47 | NUR ---
PT DENIES ANY PAIN, N&V AT THIS MOMENT. PT ALSO REFUSED ON EATING.
--- NOTE | 2020-09-15 10:47 | NUR ---
MEDICATED FOR ANXIETY AND NAUSEA; TOLERATED WELL
--- NOTE | 2020-09-15 13:43 | NUR ---
INSPITE OF ATIVAN AND LATER ZYPREXA, SHE REMAINED RESTLESS, CONFUSED AND AND LOOKED UNCOMFORTABLE. SHE C/O BURNING BILE IN HER THROAT. SHE DENIED PAIN BUT THEN SAID SHE HAD PAIN. AFTER I SAT ONE ON ONE WITH HER FOR 45 MIN, I ASKED THE PALLIATIVE NURSE TO ALSO ASSESS HER. THIS IS WHEN SHE MENTIONED PAIN. I THEN GAVE HER ZOFRAN AND 10 MG ROXANOL. JUST AFTER WE DRAINED 920 MLS BY PLEUR X DRAIN FROM HER ABD. IT WAS DARK DRAGAN IN COLOR. SHE TOLERATED IT WELL AND BEGAN TO LIGHTLY SLEEP. SHE WILL NEED MORE, THE AGITATION IS ALSO STILL EVIDENT BUT NOT DRAMATIC. BED ALARM ON AND 3 RAILS UP.
--- NOTE | 2020-09-15 14:38 | NUR ---
PT HAS SOME PAIN AND VERY ANXIOUS; MEDICATED PER EMAR
--- NOTE | 2020-09-15 14:41 | NUR ---
PT SLEEPING COMFORTABLY
--- NOTE | 2020-09-15 16:56 | NUR ---
Called to met with pt due to increasing delirium. Pt had some ativan earilier. pt wanting to sit up in bed abdomen more distended. pt grieving the changes and decline. pt states she has a terrible headache and the past few days her rt arm is hurting much more and she cannot move it with out terrible pain. She is tarting to have more pain and presure in her lower abdomen. Review of medication with nursing. pt given nausea medication and rosinol still some delirium and hyper vigilance of knowing where her son is at. Some imporvement of pain with second dosing. Review of some of the plan of care with son. he is showing significant caregiver stress. Review of family needs with [facility]. Will review dosing in am. Suggest she stay and we get some more fluid off of her and see if she is progressing.
--- NOTE | 2020-09-15 17:34 | NUR ---
pt resting better abdomen looking more distended. Review of medications with nursing. Anexiety and delirium escalates as pain increases.
--- NOTE | 2020-09-15 18:07 | NUR ---
NOTES AT 0650 NO C/O OF N/V AT THIS TIME.
--- NOTE | 2020-09-15 18:09 | NUR ---
NOTES AT 1600 PT COMFORTABLY SLEEPING; SON AT BEDSIDE
--- NOTE | 2020-09-15 18:10 | NUR ---
PT COMFORTABLY SLEEPING AT THIS TIME
--- NOTE | 2020-09-15 18:19 | NUR ---
SHIFT SUMMARY PT WAS VERY ANXIOUS THIS AM AND AFTERNOON. MEDICATER PER EMAR. PLEURX WAS DRAINED THIS MORNING; 920 OUTPUT. PT WAS ALSO IN PAIN TODAY; MEDICATED ROXANALX2. SON AT BEDSIDE MOST OF THE DAY TODAY. BED ALARM ON; BED IS IN THE LOWEST POSITION; AND CALL LIGHTS WITHIN REACH.
--- NOTE | 2020-09-15 20:15 | NUR ---
ASSUMED CARE. PARVIZ IS RESTING COMFORTABLY. COVERS ALL TUCKED AROUND HER. NO SIGNS OF DISTRESS. DRESSING FOR PLEUREX CDI. CALL LIGHT IS IN REACH, BED ALARM ON.
--- NOTE | 2020-09-16 04:48 | NUR ---
SHIFT SUMMARY: PARVIZ HAS HAD AN UNEVENTFUL NIGHT, SHE HAS SLEPT MOST OF SHIFT. SHE AWAKENED FOR A SHORT PERIOD OF TIME, ASKING FOR WATER DUE TO DRY MOUTH, SHE APPEARED TO BE MORE CLEAR MINDED AT THAT TIME. SHE HAS DENIED PAIN WHEN SHE HAS BEEN AWAKE. REPOSITIONING PRN. PLEUREX DRESSING STILL INTACT. NO PRN MEDICATION WAS GIVEN THIS SHIFT SO FAR. WILL CONTINUE TO MONITOR AND PROVIDE COMFORT. CALL LIGHT REMAINS IN REACH.
--- NOTE | 2020-09-16 14:43 | NUR ---
0800 NOTE SHE HAS MILD CONFUSION. SHE IS INTERESTED IN A LITTLE BREAKFAST. SHE IS GENERALLY COMFORTABLE.
--- NOTE | 2020-09-16 14:44 | NUR ---
1000 NOTE SLEEPING. SHE LOOKS COMFORTABLE. NO FAMILY YET TODAY.
--- NOTE | 2020-09-16 14:46 | NUR ---
1200 NOTE I JUST DRAINED 1050 MLS FROM HER ABD. INTO THE PLEUR X VACUUM CONTAINER. IT WAS CLEAR DRAGAN. SHE TOLERATED IT WELL. SHE IS A&O. SHE HAS SOME ABD PAIN AND IS GENERALLY UNCOMFORTABLE. SHE HAS BEEN UP TO THE BSC X1 WITH 1 ASSIST TO VOID. GIVING HER TYLENOL AND ROXANOL FOR HER DISCOMFORTS.
--- NOTE | 2020-09-16 14:48 | NUR ---
pt resting this morning, less aggitated. Review of medications and minimizing or holding ativan pt displying more pain. Review of ascieties and pleurex needs. Review with hospice liason different cap on pleurex.
--- NOTE | 2020-09-16 14:50 | NUR ---
1400 NOTE SHE IS COMFORTABLE. SHE HAS EATEN 35 TO 45% OF HER MEALS TODAY. THE RN SPINE HAS FED HER. NO FAMILY VISIT BUT THE SLITTER HELPER IS WORKING ON HOME ARRANGEMENTS FOR DISCHARGE.
--- NOTE | 2020-09-16 16:42 | NUR ---
1600 NOTE SHE IS RESTING COMFORTABLY. RESPIRATIONS ARE USUALLY 20/MIN TODAY. HER SON HAS BEEN WORKING WITH THE CARE MANAGERS TODAY TO ARRANGE FOR HOME HOSPICE.
--- NOTE | 2020-09-16 18:30 | NUR ---
SHE HAS HAD A MUCH BETTER DAY THAN YESTERDAY. SHE HAS BEEN RESTING COMFORTABLY MOST OF THE DAY AND HAS BEEN ORIENTED INSTEAD OF CONFUSED AND FRANTIC LIKE YESTERDAY. ABD DRAINED BY PLEUR X TUBE ONCE AND WILL DRAIN IT AGAIN NOW.
--- NOTE | 2020-09-16 19:47 | NUR ---
ASSUMED CARE. REZA IS AWAKE AND TALKING, SHE IS AOX2. HER SON JUST LEFT. HE APPEARS TO BE IN DISTRESS ABOUT THE TAKING CARE OF HIS PARENTS. STATED SEVERAL TIMES THAT HE HAS TO PUT A HOLD ON HIS LIFE, QUIT HIS JOB IN ORDER TO DO THIS, HE IS NOT SURE WHAT TO DO. REZA STATES HER PAIN IS DOING JUST FINE AT THIS TIME, ELEVATED HER FEET ON PILLOWS. DAY SHIFT JUST FINISHED DRAINING HER PLEUREX BEFORE SHIFT CHANGE. ABDOMIN ROUND AND DISTENDED, SLIGHTLY FIRM. CALL LIGHT IN REACH, WILL CONTINUE TO MONITOR.
--- NOTE | 2020-09-17 01:08 | NUR ---
DRAINED THE PLEUREX GOT 1000ML OUT, DEMENSTRATED TO SON. DISCUSSED COMPLICATIONS, RISK AND MATERIALS. PATIENT HAD PAIN, GAVE 20 OF ROXINAL. PAIN BETTER AND SHE IS RESTING.
--- NOTE | 2020-09-17 04:59 | NUR ---
SHIFT SUMMARY: AOX3, SON HAS BEEN IN THE ROOM WITH HER ALL NIGHT. COOPERATIVE. PAIN AVERAGE 5/10. MEDICATED WITH ROXINAL X1. DRAINED ACITES X1 WITH 100ML OUT. PLAN IS TO DRAIN AGAIN BEFORE SHE GOES HOME. ABDOMIN ROUND, FIRM, GUARDED. EDUCATED SON ON USE OF THE PLEUREX VACCUUM SYSTEM. HE HAS DRAINAGE BAGS AT HOME. HE WILL NEED TO BE EDUCATED ON THEM. HE IS VERY ANXIOUS ABOUT TAKING HIS MOTHER HOME. HE FEELS OVERWHELMED HE VERBALIZED SEVERAL TIMES, HE IS NOT SURE HOW HE IS GOING TO DO THIS. OVER NIGHT SHE SLEPT WELL AFTER HAVING HER ROXINAL. SHE IS ABLE TO GET UP WITH 1 ASSIST TO THE BSC. SHE DENIED ANY OTHER NEEDS THIS SHIFT. CALL LIGHT WITH IN REACH.
[2020-09-17] MEDS ORDERED: ACET325 PO (08:10)
[2020-09-17] MEDS ORDERED: LORA1 PO (08:11)
[2020-09-17] MEDS ORDERED: PROM25 PO (08:12)
[2020-09-17] MEDS ORDERED: TRANSDERM-SCOP1 EAC2 TOP (08:14)
[2020-09-17] MEDS ORDERED: MORP20L PO (08:15)
[2020-09-17] MEDS ORDERED: OLAN5 PO (08:16)
--- NOTE | 2020-09-17 09:54 | NUR ---
Received call from Bedside REANNA Faustin reporting Pt will be D/C home with hospice this AM and family will need teaching on PleurX drain. Pt needing to be drained approximately every 8 hours for comfort. Pt resting in bed upon arrival. Pt reports mild nausea. Son is at bedside. Obtained 2 PleurX drain kits to send home with Pt due to the need for draining Q 8 hours. Provided video for son to watch and then had son do return demo with actual draining. Son demonstrated appropriate understanding. No other concerns reported at this time. Spoke with Hospice director enterprise data architectureREANNA Aguilar and discussed the need to order PleurX drains. Spoke with Bedside REANNA Faustin and discussed case. Palliative Care will remain available.
--- NOTE | 2020-09-17 11:35 | NUR ---
DC SUMMARY PT DC TO HOME ON HOSPICE VIA WC. SAFELY TRANSPORTED BY [facility]. CASE MANAGEMENT SET UP HOSPICE REFERRAL. SON IN ROOM TO DISCUSS PLAN PRIOR TO DC. NO FURTHER QUESTIONS AT THIS TIME. PT DENIES ANY NEEDS. SAFELY TRANSPORTED OUT OF FACILITY WITH ALL BELONGINGS.
--- NOTE | 2020-09-17 11:37 | NUR ---
PATIENT BATHED AT 1108 BEFORE LEAVING FOR HOME
== END 2020-09-17 11:45 | disposition home or self-care (01) ==
LOC: ER 10:02 → MEDS 10:03
PROVIDERS: Emergency Medicine; ADMIT Internal Medicine
DX: C56.9 Malignant neoplasm of unspecified ovary (principal); C78.7 Secondary malignant neoplasm of liver and intrahepatic bile duct; C78.5 Secondary malignant neoplasm of large intestine and rectum; R18.0 Malignant ascites; D63.0 Anemia in neoplastic disease; G92 Toxic encephalopathy; G89.3 Neoplasm related pain (acute) (chronic); N18.30 Chronic kidney disease, stage 3 unspecified; D63.1 Anemia in chronic kidney disease; K21.9 Gastro-esophageal reflux disease without esophagitis; N32.81 Overactive bladder; R62.7 Adult failure to thrive; Z68.39 Body mass index [BMI] 39.0-39.9, adult; Z88.0 Allergy status to penicillin; Z88.1 Allergy status to other antibiotic agents; Z88.5 Allergy status to narcotic agent; Z88.8 Allergy status to other drugs, medicaments and biological substances; Z86.718 Personal history of other venous thrombosis and embolism; Z90.710 Acquired absence of both cervix and uterus; Z90.49 Acquired absence of other specified parts of digestive tract; Z66 Do not resuscitate; Z91.09 Other allergy status, other than to drugs and biological substances; Z79.01 Long term (current) use of anticoagulants; Z79.899 Other long term (current) drug therapy; Z51.5 Encounter for palliative care
CPT/HCPCS: 36415; 80053; 83735; 85025; 96361; 96374; 96375; 96376; 99284-25; A9270; G0378; J2060; J2405; J7030